=== PATIENT | male | born 1960 | race Native Hawaiian/Other Pacific Islander ===

== ENCOUNTER → 2018-01-16 | Outpatient (CLI) | payer BC | LOC: FIMAGING 10:27 | PROVIDERS: ATTEND Orthopaedic Surgery | DX: Z01.818 Encounter for other preprocedural examination (principal); M17.11 Unilateral primary osteoarthritis, right knee ==

== ENCOUNTER 2018-01-31 07:15 | Observation (INO) | payer BC ==
--- NOTE | 2018-01-12 13:53 | GHP ---
DATE OF ADMISSION: 02/07/2018 He will be an a.m. admission for surgery at [facility] on February 07, 2018. HISTORY OF PRESENT ILLNESS: The patient is a 58-year-old man admitted for a right total knee arthrop lasty. He has a long history of chronic pain in his knee. He has had several previous injuries. He has tried physical therapy. Evaluation shows severe patellofemoral arthritis. His activities are l imited and he has failed nonsurgical treatment. PAST MEDICAL HISTORY: He has atrial fibrillation. I performed a right shoulder rotator cuff repair in December of 2016. No history of cardiac stents, DVT, hepatitis, MRSA staph infections, sleep apnea or hereditary bleeding problems. CURRENT MEDICATIONS: Sotalol 80 mg b.i.d. ALLERGIES: Drug allergies: None. Metal allergy: None. Latex allergy: None. SOCIAL HISTORY: The patient is . 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 He does not smoke cigarettes and r genna drinks alcohol. He is . FAMILY HISTORY: Noncontributory. PHYSICAL EXAMINATION: GENERAL: He is a fit healthy-appearing man. Height 5 feet 11 inches. Weight 185 pounds. BMI 25.8. EYES: Conjunctivae and sclerae are clear. Pupils are round and reactive. MOUTH: Good oral hygiene. No loose teeth. CHEST: Clear. HEART: Regular rhythm. No murmurs. EX TREMITIES: Pertinent findings limited to his right knee. He lacks 5 degrees of full extension. He flexes to 125 degrees. His collateral ligaments are stable. He has coarse patellofemoral crepitatio n with active knee extension. IMPRESSION ON ADMISSION: 1. Right knee severe patellofemoral arthritis. He is prepared for right total knee arthroplasty. 2. History of intermittent atrial fibrillation. PLAN: He will undergo a right total knee arthroplasty. This will be Vj robot assisted. The surge ry has been described to him, including the risks, complications, expectations, and recovery time. I have stressed the importance of postoperative physical therapy. I have advised him that a small per centage of people do not get a good result with a total knee replacement. All his questions have bee n answered, and he consents to surgery. Copy requested to: MD Hayden Anthony, SANTOSH /[id number]/ROBERTL
[2018-02-07] MEDS ORDERED: TRANEXAMIC ACID 3,000 MG in NS (SYRINGE) 50 ML IRR ONE (06:00)
[2018-02-07] MEDS ORDERED: TRANEXAMIC ACID 1,000 MG in NS 100 ML IV ONE (06:00)
[2018-02-07] MEDS ORDERED: ROPIVACAINE 0.2% 80 MG, EPINEPHrine 0.2 MG, KETOROLAC TROMETHAMINE 30 MG in SYRINGE 0 ML IU ONE (06:00)
[2018-02-07] MEDS ORDERED: POVIDONE-IODINE 20 ML in SODIUM CL IRRIG SOLUTION 500 ML IRR ONE (06:00)
[2018-02-07] MEDS ORDERED: GABAPENTIN 300 MG CAP PO ONE (06:33)
[2018-02-07] MEDS ORDERED: FAMOTIDINE 20 MG TAB PO ONE (06:33)
[2018-02-07] MEDS ORDERED: ONDANSETRON 4 MG/2 ML VIAL IVP ONE (06:33)
[2018-02-07] MEDS ORDERED: DEXAMETHASONE 4 MG/ML VIAL IVP ONE (06:33)
[2018-02-07] MEDS ORDERED: ceFAZolin 2 GM/DEXTROSE 100 ML IV ONE (06:33)
[2018-02-07] MEDS ORDERED: ACETAMINOPHEN 325 MG TAB PO ONE (06:33)
[2018-02-07] MEDS ORDERED: LR 1,000 ML IV ONE (06:35)
[2018-02-07] MEDS ORDERED: ceFAZolin 1 GM/5 ML SYR ONE (06:50)
[2018-02-07] MEDS ORDERED: TRANEXAMIC ACID 3,000 MG/50 ML BAG IRR ONE (06:50)
--- NOTE | 2018-02-07 06:53 | PDANEPAE ---
ANE History of Present Illness right knee OA ANE Past Medical History - Cardiovascular History Hx Hypertension: No Hx Arrhythmias: Yes Hx Chest Pain: No Hx Coronary Artery / Peripheral Vascular Disease: No Hx CHF / Valvular Disease: No Hx Palpitations: No Cardiovascular History Comment: afib. followed by [facility] - Pulmonary History Hx COPD: No Hx Asthma/Reactive Airway Disease: No Hx Recent Upper Respiratory Infection: No Hx Oxygen in Use at Home: No Hx Sleep Apnea: No Sleep Apnea Screening Result - Last Documented: Negative - Neurologic History Hx Cerebrovascular Accident: No Hx Seizures: No Hx Dementia: No - Endocrine History Hx Diabetes: No Obesity: no - Renal History Hx Renal Disorders: No - Liver History Hx Hepatic Disorders: No - Neurological & Psychiatric Hx Hx Neurological and Psychiatric Disorders: No - Cancer History Hx Cancer: No - Congenital Disorder History Hx Congenital Disorders: No - GI History Hx Gastrointestinal Disorders: No - Other Health History Other Health History: wears reading glasses - Chronic Pain History Chronic Pain: Yes (right knee) - Surgical History Prior Surgeries: left knee scope. shoulder RTC repair ANE Review of Systems Review of Systems: - Exercise capacity METS (RN): 4 METS ANE Patient History - Allergies Allergies/Adverse Reactions: No Known Allergies Allergy (Verified 01/13/18 15:40) - Home Medications Home Medications: Aspirin EC [Aspirin EC 81 mg (*)] 81 mg PO DAILY 01/13/18 [Last Taken 01/31/18] C/E/Zn/Cu/OM3/DHA/EPA/LUT/ZEAX [Preservision Areds 2 Softgel] 1 each PO BID [Last Taken 01/31/18] Cholecalciferol Vit D3 [Vitamin D3 (*)] 1,000 units PO DAILY 01/13/18 [Last Taken 02/06/18] Herbals/Supplements -Info Only 1 ea PO DAILY 01/13/18 [Last Taken 01/31/18] Sotalol HCl [Betapace 80 MG (*)] 80 mg PO BID 01/13/18 [Last Taken 02/07/18] - Smoking Hx Smoking Status: Never smoked - Family Anes Hx Family Hx Anesthesia Complications: none ANE Labs/Vital Signs - Vital Signs Height: 180.34 cm Weight: 83.915 kg ANE Physical Exam - Airway Neck exam: FROM Mallampati Score: Class 1 Mouth exam: normal dental/mouth exam - Pulmonary Pulmonary: no respiratory distress - Cardiovascular Cardiovascular: regular rate and rhythym - ASA Status ASA Status: II ANE Anesthesia Plan Anesthesia Plan: spinal Regional Anesthesia: continuous NB, adductor canal FNB
[2018-02-07] MEDS ORDERED: MIDAZOLAM 2 MG/2 ML VIAL IVP ONE (06:54)
--- NOTE | 2018-02-07 07:00 | PDHPUP ---
History & Physical Update H&P update statement: This history and physical update is based on an assessment of the patient which was completed after admission or registration (within 24 hours), but prior to the surgery/procedure. H&P update: H&P reviewed & patient examined
[2018-02-07] MEDS ORDERED: MIDAZOLAM 2 MG/2 ML VIAL ONE (07:01)
[2018-02-07] MEDS ORDERED: PROPOFOL/EMULSION 500 MG/50 ML BOTTLE IV ONE ×2 (07:07→08:04)
[2018-02-07] MEDS ORDERED: LIDOCAINE 2% 5 ML SDV ONE (07:07)
[2018-02-07] MEDS ORDERED: BUPIVACAINE/DEXTROSE 7.5MG/ML 2 ML SPINAL AMP SP ONE (07:07)
[2018-02-07] MEDS ORDERED: ROPIVACAINE HCL 150 MG/30 ML INJ ONE (07:27)
[2018-02-07] MEDS ORDERED: fentaNYL 100 MCG/2 ML INJ IVP PRN (08:35)
[2018-02-07] MEDS ORDERED: HYDROmorphONE/DILAUDID 2 MG/ML INJ IVP PRN (08:35)
[2018-02-07] MEDS ORDERED: HYDROCODONE/APAP 5/325 TAB PO PRN (08:35)
[2018-02-07] MEDS ORDERED: ACETAMINOPHEN 500 MG TAB PO PRN (08:35)
[2018-02-07] MEDS ORDERED: NALOXONE HCL 0.4 MG/ML INJ IVP PRN (08:35)
[2018-02-07] MEDS ORDERED: ALBUTEROL 3 ML DEYVIAL IH PRN (08:35)
[2018-02-07] MEDS ORDERED: LR 500 ML IV PRN (08:35)
[2018-02-07] MEDS ORDERED: ONDANSETRON 4 MG/2 ML VIAL IVP PRN (08:35)
[2018-02-07] MEDS ORDERED: oxyCODONE IR 5 MG TAB PO PRN ×2 (08:35→09:42)
--- NOTE | 2018-02-07 08:35 | POSTANESTH ---
Post Anesthetic Evaluation Cardiovascular Status: Normal, Stable Respiratory Status: Normal, Stable Level of Consciousness/Mental Status: Can Participate in Eval Pain Control: Adequate, Prn Tx Ordered Nausea/Vomiting Control: Adequate, Prn Tx Ordered Complications Possibly Related to Anesthesia: None Noted
[2018-02-07] MEDS ORDERED: PROPOFOL 200 MG/20 ML VIAL ONE (09:06)
--- NOTE | 2018-02-07 09:33 | POSTOPPROG ---
Post Op Note Date of Operation: 02/07/18 Surgeon: Silvestre Cisse [employer] Salesperson: Twyla Anesthesiologist: Claritza Anesthesia: IV Sedation, Spinal Post-op Diagnosis: Right knee severe degenerative arthritis Procedure: Vj assisted right total knee arthroplasty, uncemented Inf/Abcess present in the surg proc area at time of surgery?: No EBL: 50-100 (Adductor canal block with indwelling catheter in PACU)
[2018-02-07] MEDS ORDERED: METOCLOPRAMIDE 10 MG/2 ML VIAL IVP PRN (09:42)
[2018-02-07] MEDS ORDERED: TEMAZEPAM 15 MG CAP PO PRN (09:42)
[2018-02-07] MEDS ORDERED: CYCLOBENZAPRINE 10 MG TAB PO PRN (09:42)
[2018-02-07] MEDS ORDERED: MAGNESIUM HYDROXIDE 30 ML UDCUP PO PRN (09:42)
[2018-02-07] MEDS ORDERED: NS 500 ML IV PRN (09:42)
[2018-02-07] MEDS ORDERED: DIPHENOXYLATE/ATROPINE LOMOTIL 1 TAB PO PRN (09:42)
[2018-02-07] MEDS ORDERED: PROMETHAZINE HCL 25 MG/ML INJ IVP PRN (09:42)
[2018-02-07] MEDS ORDERED: ONDANSETRON DISINTEGRATING 4 MG TAB PO PRN (09:42)
[2018-02-07] MEDS ORDERED: POLYETHYLENE GLYCOL 3350 17 GM PKT PO PRN (09:42)
[2018-02-07] MEDS ORDERED: PROMETHAZINE HCL 25 MG SUPPR PR PRN (09:42)
[2018-02-07] MEDS ORDERED: diphenhydrAMINE 25 MG CAP PO PRN (09:42)
[2018-02-07] MEDS ORDERED: BISACODYL 10 MG SUPP PR PRN (09:42)
[2018-02-07] MEDS ORDERED: LACTULOSE 20 GM/30 ML UDCUP PO PRN (09:42)
[2018-02-07] MEDS ORDERED: LR 1,000 ML IV SCH (10:00)
--- NOTE | 2018-02-07 10:39 | GOP ---
DATE OF OPERATION: 02/07/2018 SURGEON: Silvestre Cisse MD MEAL ROOM HAND: Robert Ariza CFA. Josué Holliday, PAC. ANESTHESIA: A combination of Marcaine, spinal, IV sedation, and adductor canal block. ANESTHESIOLOGIST: Tay Jerry MD. PREOPERATIVE DIAGNOSIS: Right knee severe degenerative arthritis. POSTOPERATIVE DIAGNOSIS: Right knee severe degenerative arthritis. PROCEDURE PERFORMED: Right knee Vj robot-assisted total knee arthroplasty, posterior stabilized. FINDINGS: DESCRIPTION OF PROCEDURE: The patient was given 2 g of IV Ancef preoperatively within 60 minutes of surgery. He also received 1000 mg of IV tranexamic acid. He was placed on the operating room table and given spinal anesthesia with Marcaine by Dr. Jerry. He was then placed supine and given IV se dation. A Cool catheter was not used. He wore a ASHVIN stocking and SCD on the nonoperative leg. His right lower extremity was prepped with ChloraPrep from the upper thigh tourniquet to the tips of the toes. It was draped free using sterile sheets, stockinette, and Ioban plastic adhesive drape. The lower leg was wrapped with compressive Coban. The [employer] time-out was performed to verify the correct patient identity and the c orrect surgical side and site. The [place] time-out was also performed. The Indexing leg holding shilo ce was sterilely attached to the operating room table and used throughout the procedure to help posit ion the knee. Two 3 mm partially threaded pins were inserted bicortically into the anteromedial thuy ex of the tibia about 4-5 inches distal to the tibial tubercle. At this point, the leg was exsanguin ated with elevation and a 6-inch compressive wrap, and the pneumatic tourniquet was inflated to 250 m mHg. A straight midline incision was made centered on the patella. Subcutaneous tissues were sharpl y divided, and hemostasis was obtained using electrocautery. A medial subcutaneous flap was develope d, and the capsule and synovium were opened in a medial parapatellar fashion. His medial capsule and periosteum were lightly elevated off the rim of the medial tibial plateau. Two 3 mm partially threaded pins were inserted into the medial aspect of the distal femur in the supr acondylar region. The femoral check point was inserted just distal and posterior to the 2 pins. The tibial check point was inserted on the anteromedial cortex of the proximal tibia about an inch dista l to the joint line. The arrays were attached to both the femur and the tibia. I confirmed that the arrays were visualized by the computer. In order to improve exposure, his patella was prepared first. He had very severe degenerative change s in the patellofemoral joint. The lateral facet of the patella was eroded down to sclerotic subchon dral bone. He also had a significant erosion on the lateral femoral sulcus. The original thickness of the patella was measured. Peripheral osteophytes were removed. I cut a flat surface on the back of the patella. He was sized for a 38 mm asymmetric patella which was 11 mm in thickness. I removed enough bone from the patella such that the remaining bone plus the thickness of the patellar compone nt recreated the original thickness of the patella. The composite thickness was 23 mm. The bony anatomy of the knee was registered on the computer starting with the center rotation of the femoral head followed by the medial and lateral malleoli. The femoral anatomy was registered followe d by the tibial anatomy. I performed dynamic joint balancing. The preoperative plan called for a 6 femur and a 6 tibia. In o rder to achieve proper gap balancing, I added 1 degree of varus to the femur. I also shifted the fem ur approximately 1 mm in order to help deal with his preoperative flexion contracture. I was able to obtain 20-21 mm medial and lateral gaps in both flexion and extension. The robotic saw was brought in and registered. I made the distal cut followed by the posterior chamf er cut, the anterior cut, and the anterior chamfer cut. The robotic arm was then used for the proxim al tibial cut. Using the appropriate jig, I created the notch in the distal femur to accommodate the posterior stabi lized component. The size 6 femoral component was applied. I was careful to center it on the distal femur. The tibia was sized for a size 6 component. The central thin punch was used. I drilled 4 additional fixation holes for the press-fit component. With the trial components in place, I trialed both the 9 mm and the 11 mm posterior stabilized tibial insert. I concluded that the 11 mm was the proper thi ckness. He was balanced in 5 degrees of flexion and 90 degrees of flexion. He easily flexed to 135 degrees. The posterior compartment was cleared of meniscal remnants. Osteophytes were removed from the back o f his femoral condyles. 40 mL of the joint anesthetic cocktail was injected into the posterior capsu le, the periarticular structures, and the quadriceps muscle, and tendon areas. All 3 components were press fit. The tibial component was inserted 1st and tapped securely into plac e. It was a very tight fit. The femoral component was then tapped securely into place and again was very tight. I used a drill guide to drill the 3 anchoring holes for the patellar component. The 11 mm Triathlon X3 tibial insert was inserted and locked into place. The 38 mm asymmetric patella was applied and tightened securely into place. The tourniquet was deflated. Total tourniquet time was 1 hour and 20 minutes. The knee was thorough ly irrigated with a dilute Betadine solution. 50 cc of the tranexamic acid solution was irrigated in to the wound. The wound was packed with a lap sponge and wrapped with 6-inch Angel wrap for 2 or 3 min utes. The vastus medialis portion of the extensor mechanism was repaired with several interrupted figure-of -eight #2 FiberWire sutures. The capsule and synovium were closed first with multiple interrupted fi [id number] PDS sutures, followed by a running #2 barbed Ethicon Stratafix PDO suture. Subcutane ous tissues were closed with a running 0 barbed Ethicon Stratafix Monoderm suture. The skin was clos ed with a running 3-0 barbed Ethicon Stratafix Monoderm subcuticular suture. The skin was sealed wit h half-inch Steri-Strips. The wound was covered with a large sterile Mepilex waterproof dressing. T he knee was wrapped with a 6-inch compressive wrap. A long-leg ASHVIN stocking and SCD were applied, fo llowed by the cooling device. I used a size 6 Meagan Triathlon press-fit posterior stabilized femoral component, a size 6 Meagan Triathlon Tritanium tibial press-fit component, a 38 mm x 11 mm asymmetric press-fit patellar compone nt, and an 11 mm posterior stabilized tibial insert. The sponge and needle count were correct on 2 occasions. He was awakened from anesthesia, transferred to [facility] and taken to PACU in satisfactory c ondition. There were no recognized intraoperative complications. In the PACU, for additional postop erative pain control, Dr. Jerry performed an adductor canal block with an indwelling catheter. Robert Ariza and Jorge Holliday acted as surgical assistants. Their assistance was a medical necess ity. Copy requested to: Elina Mckenna /[id number]/MODL
[2018-02-07] MEDS: ACETAMINOPHEN 325 MG TAB PO SCH ×2 (11:42→17:47)
[2018-02-07] MEDS: KETOROLAC 15 MG/1 ML SDV IVP SCH ×3 (11:42→22:33)
[2018-02-07] MEDS ORDERED: traMADol 50 MG TAB PO PRN (12:20)
[2018-02-07] MEDS: ceFAZolin 2 GM/DEXTROSE 100 ML IV SCH ×2 (15:02→22:40)
[2018-02-07] MEDS: SENNOSIDES/DOCUSATE SODIUM TAB PO SCH (20:33)
[2018-02-07] MEDS: PRESERVISION AREDS2 FORMULA EYE VIT 1 EACH PO SCH (20:33)
[2018-02-07] MEDS: FAMOTIDINE 20 MG TAB PO SCH (20:33)
[2018-02-07] MEDS: SOTALOL HCL 80 MG TAB PO SCH (20:33)
[2018-02-07] MEDS: ASPIRIN 325 MG TAB PO SCH (20:43)
[2018-02-08] MEDS: ACETAMINOPHEN 325 MG TAB PO SCH ×2 (02:40→05:22)
[2018-02-08] MEDS: KETOROLAC 15 MG/1 ML SDV IVP SCH (05:21)
--- NOTE | 2018-02-08 07:10 | SOAPPROG ---
SOAP Progress Note Assessment/Plan: Assessment: POD #1. No pain overnight. VSS. H/H ok. Dressing clean and dry. Post op films look good. Afebrile. OOB w/ PT yesterday. Plan: PT/OT today. D/c to home later today. 02/08/18 07:09 Objective: Vital Signs Temp Pulse Resp BP Pulse Ox 36.6 C 53 L 18 114/53 L 93 02/08/18 04:00 02/08/18 04:00 02/08/18 04:00 02/08/18 04:00 02/08/18 04:00 Laboratory Results 02/08/18 04:28 02/07/18 02/08/18 02/09/18 05:59 05:59 05:59 Intake Total 2450 Output Total 6615 Balance -105 ICD10 Worksheet Patient Problems: Problems Problem Status Onset Osteoarthritis of right knee Acute
--- NOTE | 2018-02-08 08:49 | GDS ---
ADMISSION DIAGNOSIS: Severe right knee osteoarthritis. DISCHARGE DIAGNOSIS: Severe right knee osteoarthritis. OPERATIONS PERFORMED: Right total knee arthroplasty, Vj assist. COMPLICATIONS: None. CONDITION ON DISCHARGE: Improved. DESCRIPTION OF HOSPITAL COURSE: The patient was admitted to the hospital on the day of surgery. His admission white blood cell count was 6.37. His H and H were normal. The same day under a combination of IV sedation and Marcaine spinal, the patient underwent a right to goldie knee arthroplasty, robot assist. A Cool catheter was not used. He was able to void on his own following surgery. He was treated with multimodal DVT prophylaxis including ASHVIN stockings, SCDs, and early mobilization. On the 1st postoperative day, the patient's H and H were 13.6 and 39.9. He did not require any trans fusion. He was seen by Physical therapy and made good progress with knee range of motion exercises a nd ambulation. By the time of discharge, the patient was independent with his walker and afebrile. DISPOSITION: The patient is discharged to his home. He will go directly to outpatient physical therapist assistant apy. He has prescriptions for oxycodone, tramadol, and Celebrex for pain control. Full-strength asp irin x21 days. ASHVIN stockings x1 week. He has a followup appointment on February 23. He is to call the office sooner if he has any problems. Copy requested to: Elina Mckenna MD /[id number]/MODL
[2018-02-08] MEDS ORDERED: FERROUS SULFATE 140 MG TAB.ER PO SCH (09:00)
[2018-02-08] MEDS ORDERED: ROPIVACAINE HCL 150 MG/30 ML INJ ONE (09:15)
[2018-02-08] MEDS: FAMOTIDINE 20 MG TAB PO SCH (09:37)
[2018-02-08] MEDS: PRESERVISION AREDS2 FORMULA EYE VIT 1 EACH PO SCH (09:38)
[2018-02-08] MEDS: SENNOSIDES/DOCUSATE SODIUM TAB PO SCH (09:38)
[2018-02-08] MEDS: SOTALOL HCL 80 MG TAB PO SCH (09:38)
[2018-02-08] MEDS: ASPIRIN 325 MG TAB PO SCH (09:38)
[2018-02-08 09:42] VITALS: BP 121/74
--- NOTE | 2018-02-08 11:17 | ASMTLACE ---
LACE Length of stay for Answers: 2 days current admission Acuity / Level of Answers: No Care: Did the patient have an inpatient admission? Comorbidities - select Answers: Opioid dependence all that apply / Chronic pain Other Notes: AFib # of Emergency department Answers: 0 visits in the last 6 months Score: 7 Date Signed: 02/08/2018 11:17 AM Electronically Signed By:CLAY Haskins
--- NOTE | 2018-02-08 11:19 | ASMTCMCOM ---
CM Note CM Note Notes: Pt had planned OA of knee. PT rec home/outpatient. MD rec outpatient. Pt resides with spouse. No CM d/c needs identified. Date Signed: 02/08/2018 11:18 AM Electronically Signed By:CLAY Haskins
[2018-02-08] MEDS ORDERED: LIPID EMULSION 20% 100 ML IV PRN (11:30)
--- NOTE | 2018-02-08 11:34 | PDPAINCON ---
Pain Management Consultation Patient referred by : Tanna - Subjective Pain at rest (/10): 0 Pain with activity (/10): 0 Pain is: no pain at all Activity: able to ambulate (with walker), participating in PT - Objective Technique: continuous peripheral nerve block Site: femoral (adductor canal catheter) Catheter site: clean, dry, intact, no erythema/edema/exudate Sensory and motor exam: consistent with block Vital signs: stable - Assessment/Plan Assessment/Plan: pain well-controlled, continue current mgmt Additional comments: Pt reports great pain control s/p R TKA. Bolused patient with 20ml 0.5% Ropivicaine and removed AC catheter. No complications.
== END 2018-02-08 14:02 | disposition home or self-care (01) ==
LOC: F3N 02-07 05:58
PROVIDERS: ADMIT Orthopaedic Surgery; ATTEND Orthopaedic Surgery
PROC: 8E0Y0CZ Robotic Assisted Procedure of Lower Extremity, Open Approach (ICD-10-PCS; 2018-02-07)
PROC: 0SRC0JA Replacement of Right Knee Joint with Synthetic Substitute, Uncemented, Open Approach (ICD-10-PCS; principal; 2018-02-07 07:15)
DX: M17.11 Unilateral primary osteoarthritis, right knee (principal); I48.91 Unspecified atrial fibrillation; Z79.899 Other long term (current) drug therapy; Z79.82 Long term (current) use of aspirin
CPT/HCPCS: 27447; 73560; 77073; 97116; 97161; 97165; 97530; G0378; J0171; J0690; J1100; J1885; J2250; J2405; J2704; J2795

== ENCOUNTER → 2018-04-04 | Outpatient (CLI) | payer BC | LOC: CIMAGING 10:39 | PROVIDERS: ATTEND Orthopaedic Surgery | DX: Z96.651 Presence of right artificial knee joint (principal) | CPT/HCPCS: 93971-PO ==